=== PATIENT | female | born 1965 | race African-American/Black ===

== ENCOUNTER 2017-09-30 16:57 | Emergency (ER) | payer MEDICAID ==
[~2017-09-30] VITALS: Ht 182.9 cm; Wt 114.3 kg
[~2017-09-30 16:57] MED LIST: BACL10TA; CARI-316; FELO2.5T; IBU800T
[2017-09-30 17:11] VITALS: BP 132/80
== END 2017-09-30 19:16 | disposition home or self-care (01) ==
LOC: ER 16:57
DX: R68.84 Jaw pain (principal); I10 Essential (primary) hypertension; Z79.899 Other long term (current) drug therapy
CPT/HCPCS: 70260; 93005

== ENCOUNTER 2019-05-16 11:47 | Emergency (ER) | payer MEDICAID ==
[~2019-05-16] VITALS: Ht 182.9 cm; Wt 113.4 kg
[~2019-05-16 11:47] MED LIST changes: -CARI-316; +CARI350T22; -FELO2.5T; +FELO2.5T3
[2019-05-16 12:40] LABS: Urine Bacteria NONE SEEN /hpf (None Seen); Urine Blood Negative /uL (Negative); Urine Specific Gravity 1.032 (1.001-1.035); Urine WBC 1 /hpf (0 - 5)
[2019-05-16 12:42] LABS: Basophils # (auto) 0.1 uL; Basophils % (auto) 1.2 % (0.0-2.0); Eosinophils # (auto) 0.1 uL; Eosinophils % (auto) 0.7 % (0.0-7.0); Lymphocytes # (auto) 2.5 uL; Mean Corpuscular Hemoglobin 29.6 pg (28.0-32.0); Mean Corpuscular Hgb Conc. 34.1 g/dL (32.0-36.0); Mean Corpuscular Volume 86.9 fL (80.0-100.0); Monocytes # (auto) 0.6 uL; Monocytes % (auto) 5.4 % (0.0-12.0); Neutrophils # (auto) 7.2 uL; Neutrophils % (auto) 68.7 % (37.0-80.0); Nucleated Red Blood Cells % 0.1 %; Platelet Count (auto) 232 10^3/uL (140-450); Red Cell Distribution Width 14.1 % (11.8-14.3); White Blood Cell 10.4 10^3/uL (4.4-10.8)
[2019-05-16 12:53] LABS: Albumin 3.6 g/dL (3.4-5.0); BUN/Creatinine Ratio 20.4; Calcium 9.3 mg/dL (8.5-10.1); Potassium 3.8 mmol/L (3.5-5.1)
[2019-05-16 12:55] LABS: Alcohol, Urine < 3.0 mg/dL (0-5); Amphetamine Screen, Urine NEGATIVE (NEGATIVE); Barbiturate Scree,Urine NEGATIVE (NEGATIVE); Benzodiazephine Screen, Urine NEGATIVE (NEGATIVE); Cannabinoid Screen, Urine POSITIVE (NEGATIVE); Cocaine Screen, Urine NEGATIVE (NEGATIVE); Opiate Scree,Urine NEGATIVE (NEGATIVE); Phencyclidine Screen, Urine NEGATIVE (NEGATIVE)
[2019-05-16 12:56] LABS: Bilirubin, Total 0.6 mg/dL (0.2-1.0); Total Protein 7.9 g/dL (6.4-8.2)
[2019-05-16] MEDS ORDERED: SODIUM CHLORIDE 0.9% 1,000 ML IV ONE (13:15)
[2019-05-16] MEDS ORDERED: InsuLIN REG 1unit/0.01ml Soln (100units/ml) IV ONE ×2 (13:15→15:45)
[2019-05-16 16:00] VITALS: BP 130/92
== END 2019-05-16 17:32 | disposition home or self-care (01) ==
LOC: ER 11:47
DX: E11.65 Type 2 diabetes mellitus with hyperglycemia (principal); I10 Essential (primary) hypertension
CPT/HCPCS: 36415; 36600; 70450; 80053; 80307; 81001; 82010; 82805; 82962; 83036; 84484; 85025; 96361; 96374; 96376; 99284; J1815; J7030

== ENCOUNTER 2020-11-27 13:04 | Emergency (ER) | payer MEDICAID ==
[~2020-11-27] VITALS: Ht 182.9 cm; Wt 111.1 kg
[2020-11-27 16:38] VITALS: BP 124/85
[2020-11-27] MEDS ORDERED: methylPREDNISolone SOD SUCC 125 MG/2 ML VL ONE (16:59)
[2020-11-27] MEDS ORDERED: IPRATROPIUM BROM 0.5 MG/2.5ML INH SOL NEB ONE (17:00)
[2020-11-27] MEDS ORDERED: methylPREDNISolone SOD SUCC 125 MG/2 ML VL IM ONE (17:00)
[2020-11-27] MEDS ORDERED: ALBUTEROL SULF 2.5 MG/0.5ML(0.5%) NEB SOLN NEB ONE (17:00)
== END 2020-11-27 17:38 | disposition home or self-care (01) ==
LOC: ER 13:04
DX: J44.9 Chronic obstructive pulmonary disease, unspecified (principal); I10 Essential (primary) hypertension
CPT/HCPCS: 71045; 94640; 96372; 99283; J2930; J7644